=== PATIENT | male | born 1970 ===

== ENCOUNTER 2023-10-30 11:18 | Outpatient (CLI) | payer SELFPAY ==
--- NOTE | ~2023-10-30 | US_ITS ---
Limited Abdominal Sonogram: Real-time sonographic imaging of the right upper quadrant was performed. Clinical History: Abnormal liver enzymes Findings: The liver appears normal with no evidence of solid mass lesion or bile duct dilatation. Ma in portal vein demonstrates normal direction of flow. The gallbladder is well distended, and appears normal with no evidence of gallstone or wall thickening. The common bile duct measures 4 mm. The vis ualized pancreas, aorta, and IVC are unremarkable. Impression: No significant abnormality seen. Reviewed, dictated and finalized at location M. Impression: No significant abnormality seen.
== END 2023-10-30 11:19 ==
PROVIDERS: PCP Pediatrics; Visit Provider Pediatrics
DX: E78.5 Hyperlipidemia, unspecified (principal); R74.8 Abnormal levels of other serum enzymes; G47.00 Insomnia, unspecified; L81.9 Disorder of pigmentation, unspecified; L40.9 Psoriasis, unspecified
CPT/HCPCS: 76705